=== PATIENT | male | born 1995 | race Caucasian/White ===

== ENCOUNTER 2019-03-04 11:44 | Emergency (ER) | payer OTHER ==
[~2019-03-04] VITALS: Ht 185.4 cm; Wt 68.0 kg
[2019-03-04 11:50] VITALS: BP 102/64
[2019-03-04 12:17] LABS: CLARITY,URINE CLEAR (Clear); COLOR,URINE YELLOW (Yellow); GLUCOSE, URINE NEGATIVE (Neg); KETONES,URINE NEGATIVE (Neg); LEUKOCYTE ESTERASE ,URINE SMALL (Neg); NITRITES, URINE NEGATIVE (Neg); OCCULT BLOOD,URINE NEGATIVE (Neg); PROTEIN,URINE NEGATIVE (Neg); UROBILINOGEN,URINE 0.2 E.U/dL (0.2-1.0)
[2019-03-04 12:22] LABS: UA COLLECTION TYPE VOIDED
[2019-03-04 12:23] LABS: BACTERIA,URINE NONE SEEN /HPF (Neg); MUCUS STRANDS FEW /LPF (Neg); RBC,URINE 0-2 /HPF (0-2); SQUAMOUS EPITHELIAL CELL,UR NONE SEEN /LPF (FEW); WBC,URINE 20-30 /HPF (0-4)
--- NOTE | 2019-03-04 12:23 | NUR ---
AMBULATORY TO ER #9 WITH C/O URINARY BURNING X A FEW DAYS. DENIES MEDICAL HISTORY OR ROUTINE MEDICATIONS. URINE OBTAINED AND SENT TO LAB FOR ANALYSIS.
[2019-03-04] MEDS ORDERED: azithromycin 250mg tablet PO ONE ×2 (12:25→13:05)
[2019-03-04] MEDS ORDERED: CefTRIAXone 1000mg IM Kit (w/lidocaine diluent) IM ONE ×2 (12:25→13:00)
== END 2019-03-04 13:56 | disposition home or self-care (01) ==
LOC: ER 11:45
DX: N34.2 Other urethritis (principal); Z88.1 Allergy status to other antibiotic agents
CPT/HCPCS: 36415; 81001; 87088; 87491; 87591; 96372; 99283; J0696